=== PATIENT | female | born 1960 | race Caucasian/White ===

== ENCOUNTER 2017-12-08 12:14 | Emergency (ER) | payer OTHER ==
[2017-12-08] MEDS: DIAZEPAM 5 MG TAB PO (13:19)
[2017-12-08] MEDS: KETOROLAC 60 MG INJ IM (13:19)
[2017-12-08] MEDS ORDERED: LORATADINE 10 MG TAB PO (15:30)
[2017-12-08] MEDS ORDERED: METOCLOPRAMIDE 10 MG TAB PO (15:30)
== END 2017-12-08 15:16 | disposition home or self-care (01) ==
LOC: FTE 12:14
DX: M54.5 Low back pain (principal)
CPT/HCPCS: 72100; 96372; 99284-25

== ENCOUNTER 2018-01-29 12:56 | Emergency (ER) | payer OTHER ==
[2018-01-29] MEDS: CYCLOBENZAPRINE 10 MG TAB PO (17:14)
[2018-01-29] MEDS: KETOROLAC 60 MG INJ IM (17:14)
== END 2018-01-29 18:21 | disposition home or self-care (01) ==
LOC: FTE 12:56
DX: M54.9 Dorsalgia, unspecified (principal); M62.838 Other muscle spasm; F17.210 Nicotine dependence, cigarettes, uncomplicated
CPT/HCPCS: 96372; 99284-25

== ENCOUNTER 2018-02-11 07:39 | Day surgery (SDC) | payer OTHER ==
[~2018-02-11 07:39] MED LIST: LIDOCAINE 2% (SDV) 5 ML INJ; PROPOFOL 200 MG INJ
[2018-02-11] MEDS ORDERED: TROPICAMIDE 1% 3 ML OPH OPER (08:00)
[2018-02-11] MEDS ORDERED: SOD CHLORIDE 0.9% 1,000 ML IV (08:00)
[2018-02-11] MEDS: TROPICAMIDE 1% 15 ML OPH OPER (08:46)
[2018-02-11] MEDS: DICLOFENAC 0.1% 2.5 ML OPH OPER (08:47)
[2018-02-11] MEDS: MOXIFLOXACIN 0.5% 3 ML OPH OPER (08:47)
[2018-02-11] MEDS: CYCLOPENTOLATE/PHENYLEPH 2 ML OPH OPER (08:47)
[2018-02-11] MEDS ORDERED: CARBACHOL 0.01% 1.5 ML OPH INJ (10:36)
[2018-02-11] MEDS ORDERED: BUPIVACAINE 0.75% (MPF) 10 ML INJ (10:36)
[2018-02-11] MEDS ORDERED: CEFAZOLIN 1 GM INJ (10:37)
[2018-02-11] MEDS: TETRACAINE 0.5% 4 ML OPH (11:31)
[2018-02-11] MEDS: LIDOCAINE 2% (MDV) 20 ML INJ INJ (11:32)
[2018-02-11] MEDS: DEXAMETHASONE 4 MG/ML 1 ML INJ (11:32)
[2018-02-11] MEDS: BUPIVACAINE 0.75% (MPF) 10 ML INJ INJ (11:56)
[2018-02-11] MEDS ORDERED: OXYCODONE/ACETAMINOPHEN (5/325) TAB PO ×2 (12:30)
[2018-02-11] MEDS ORDERED: FENTAnyl 50 MCG/ML VIAL IV (12:30)
[2018-02-11] MEDS: FENTAnyl 50 MCG/ML VIAL IV (12:40)
[2018-02-11] MEDS: ONDANSETRON 4 MG INJ IV (12:41)
== END 2018-02-11 14:01 | disposition home or self-care (01) ==
LOC: SDS 07:39
DX: H25.041 Posterior subcapsular polar age-related cataract, right eye (principal); I10 Essential (primary) hypertension; E78.5 Hyperlipidemia, unspecified; E03.9 Hypothyroidism, unspecified
CPT/HCPCS: 66984; 84703

== ENCOUNTER 2018-06-17 05:55 | Emergency (ER) | payer OTHER ==
[2018-06-17] MEDS: DEXAMETHASONE 10 MG/ML 1 ML INJ IM (06:53)
[2018-06-17] MEDS: DIAZEPAM 5 MG TAB PO (06:53)
[2018-06-17] MEDS: KETOROLAC 60 MG INJ IM (06:54)
== END 2018-06-17 07:19 | disposition home or self-care (01) ==
LOC: FTE 05:55
DX: M54.31 Sciatica, right side (principal); F17.210 Nicotine dependence, cigarettes, uncomplicated; Z85.41 Personal history of malignant neoplasm of cervix uteri
CPT/HCPCS: 96372; 99284-25